=== PATIENT | female | born 1965 | race Caucasian/White ===

== ENCOUNTER → 2016-09-17 | Outpatient (CLI) | payer MEDICARE, OTHER ==
[~2016-09-17] MED LIST: NO MEDICATIONS; VIT B-12 PO
--- NOTE | ~2016-09-17 | EKG ---
PATIENT: MIYA PALAFOX UNIT #: [id number] Ventricular Rate: 69 BPM Atrial Rate: 69 BPM P-R Interval: 150 ms QRS Duration: 90 ms Q-T Interval: 388 ms QTC Calculation(Bezet): 415 ms P Hudson: 66 degrees Calculated R Hudson: 55 degrees Calculated T Hudson: 48 degrees Diagnosis Line: Normal sinus rhythm Diagnosis Line: Low voltage QRS Diagnosis Line: Borderline ECG Diagnosis Line: No previous ECGs available Diagnosis Line: Confirmed by FLORENTINO BLAIR MD ([id number]) on Diagnosis Line: 09/18/2016 11:46:53 AM INTERPRETING MD: CYDNEY
[2016-09-17 10:50] LABS: HEMATOCRIT 44.2 % (35.0-45.0); HEMOGLOBIN 14.9 gm/dL (12.0-16.0); MEAN CELL VOLUME 90.3 FL (83-96); MEAN CORPUSCULAR HEMOGLOBIN 30.3 PG (28-34); MEAN CORPUSCULAR HGB CONC 33.6 g/dL (30-36); MEAN PLATELET VOLUME 8.2 FL (6.5-11.5); RED BLOOD COUNT 4.9 X10e (3.90-5.30); RED CELL DISTRIBUTION WIDTH 13.1 % (11.0-15.5); WHITE BLOOD COUNT 6.1 X10e3 (4.0-10.5)
[2016-09-17 11:44] LABS: ALBUMIN SERUM 4.1 g/dL (3.5-5.0); ALKALINE PHOSPHATASE 317 U/L (32-92); ALT (SGPT) 134 U/L (10-40); AST (SGOT) 56 U/L (10-42); BILIRUBIN,TOTAL 0.5 mg/dL (0.2-2.0); BLOOD UREA NITROGEN 10 mg/dL (9-23); BUN/CREATININE RATIO 14.28; CALCIUM SERUM 9.5 mg/dL (8.4-10.2); CARBON DIOXIDE 30 mmol/L (22-31); CHLORIDE 103 mmol/L (100-111); CREATININE SERUM 0.7 mg/dL (0.6-1.4); GLOM FILT RATE Estimated ABOVE60 mL/min (>60); GLUCOSE FASTING 77 mg/dL (70-110); POTASSIUM 4.6 mmol/L (3.5-5.1); PROTEIN TOTAL SERUM 7.7 g/dL (6.0-8.3); SODIUM 138 mmol/L (135-145)
== END | disposition home or self-care (01) ==
LOC: CAMB 09:40
PROVIDERS: Specialist
DX: Z01.818 Encounter for other preprocedural examination (principal)
CPT/HCPCS: 36415; 80053; 85027; 93005

== ENCOUNTER 2016-09-18 10:01 | Inpatient (IN) | payer MEDICARE, OTHER ==
--- NOTE | ~2016-09-18 | NM21 ---
[facility] A Service of [place] [facility] RADIOLOGY TEXT RESULTS PATIENT: MIYA PALAFOX LOCATION: [facility] [id number] : 61 UNIT #: [id number] AGE: [address]: Nicolás Miller MD SEX: F ORDER DR: [id number] [facility] [address] [place], [place] [address] [id number] I MR#: [id number] #: [id number] NAME: MIYA PALAFOX : 1965 SEX: F STUDY DATE/TIME: 09/19/2016 11:21 UNIT: [facility] ROOM: [facility] STUDY DESCRIPTION: NM Hepatobiliary W GB Attending Physician: Nicolás Miller M.D. Ordering Physician: Nicolás Miller M.D. Primary Care Physician: No Primary Care Physician MEDICAL IMAGING REPORT This report is preliminary unless electronic signature is present EXAM Hepatobiliary scan, 09/19. INDICATION Status post cholecystectomy, 09/18/2016. Persistent upper abdominal pain and nausea after surgery. Evaluate for a bile leak. FINDINGS Imaging was obtained of the abdomen for 2 hours after the IV administration of 5.0 mCi of technetium 99m-Choletec. Comparison is made with a CT of the abdomen from 09/10/2016. There are no postoperative images available. Study shows prompt uptake by the liver with excretion into the biliary system within 30 minutes. There is presumably a drain in the right upper quadrant. This is filled with tracer within 30 minutes and partially seen at 15 minutes suggesting a bile leak. There is persistence of contrast in the james hepatis which could reflect a biloma, as well. IMPRESSION There is tracer filling what appears to be a surgical drain in the right upper quadrant. Correlate clinically as I have no postoperative imaging. This would be consistent with a bile leak. Additionally, there is persistent tracer collection in the james hepatis concerning for small biloma. Findings could be better assessed with CT if indicated. Dictated by... Nicolás Arambula Jr., M.D. THIS IS AN ELECTRONICALLY VERIFIED REPORT Nicolás Arambula Jr., M.D. at 09/20/2016 8:09 AM RLK/milagrosw [facility]. [facility] A Service of [place] [facility] RADIOLOGY TEXT RESULTS PATIENT: MIYA PALAFOX [id number] [birth year] UNIT #: [id number] AGE: [address]: Nicolás Miller MD SEX: F ORDER DR: TD: 09/19/2016 17:11 JOB #: [id number] MEDICAL IMAGING REPORT COPY
--- NOTE | ~2016-09-18 | OR ---
Unit #: [id number] #: [id number] Patient: MIYA PALAFOX [id number] [facility] [address], [place] [address] [id number] I MR#: [id number] NAME: MIYA PALAFOX [facility] Date of Procedure: 09/18/2016 Admission Date: 09/18/2016 Surgeon: Nicolás Miller M.D. : 1965 Attending Physician: Nicolás Miller M.D. OPERATIVE REPORT PREOPERATIVE DIAGNOSIS Acute cholecystitis. POSTOPERATIVE DIAGNOSIS Hydrops of the gallbladder. PROCEDURE PERFORMED Laparoscopic cholecystectomy with Kendrick-Barton drain placement. ANESTHESIA General endotracheal anesthesia. ESTIMATED BLOOD LOSS Less than 100 mL. INDICATIONS FOR PROCEDURE Ms. Palafox is a 51-year-old female, who has been having several months of right upper quadrant pain after eating. The pain became more intense and she went to the emergency room. In the emergency room, she was diagnosed with acute cholecystitis. CT scan showed gallbladder inflammation and dilatation and a normal extrahepatic biliary tree. Bilirubin was normal. Her liver chemistries were slightly elevated consistent with hepatosteatosis. DESCRIPTION OF PROCEDURE The patient was admitted to [facility], positively identified, transported to the operating room, and after induction of general endotracheal anesthesia, she received IV antibiotics per SCIP protocol and she was prepped and draped in the usual sterile fashion. A 5-mm infraumbilical incision was made. Veress needle was placed. Pneumoperitoneum was created. Then, a 5-mm trocar was placed. Laparoscope was introduced into the peritoneal cavity. Under direct vision, the epigastric and lateral ports were placed. The gallbladder was distended and inflamed. It was dilated enough that it could not be grasped, so an ovarian aspirator was used to aspirate the gallbladder contents. Upon aspiration, she had white bile consistent with hydrops of the gallbladder. Once we had aspirated the bile, the gallbladder could be grasped and elevated. There was acute inflammation of the gallbladder and a lot of fatty infiltration and inflammation around the infundibulum and the triangle of Calot. I carefully dissected out the triangle of Calot and irrigated and identified the cystic duct, gallbladder, and what I believe to be the cystic duct-common duct junction as well as the cystic Unit #: [id number] #: [id number] Patient: PALAFOX,MIYA artery. We dissected down the inflammatory tissues and there was the critical view, where the liver could be seen behind the ductal structures. The cystic duct appeared to be of normal size and the cystic artery appeared to be short, but coming off the hepatic artery. The cystic duct was doubly clipped and divided and was bluntly swept down and there were no structures behind the cystic artery, so I then swept the cystic duct up to the gallbladder to ensure there were no stones and then clipped the cystic duct, as it entered the gallbladder, 3 clips were placed distally and the cystic duct was sharply divided. I then was dissecting the gallbladder out of the liver bed, there was inflammatory tissue between the gallbladder and the hepatic fossa and as I got midway up the hepatic fossa, I saw some bile staining. I could not identify ductal structure and there was no further drainage of bile after I aspirated the bile that I saw with the suction professor of pathology. I carefully searched the area I dissected and I did not see any ductal structure. There was some bleeding from the liver bed because of the inflammatory tissues, but the gallbladder came out without any further spillage of bile and there were no stones. The clip came off the cystic duct, gallbladder junction, and two stones were dropped and they were both retrieved. I copiously irrigated. I did not see any further bile. The clips I placed were well positioned. I placed a Kendrick-Barton drain into the hepatic fossa. Again, I checked the hepatic fossa and could not identified a ductal structure. Again, there was some significant inflammation but at this point, there was no active bleeding. FloSeal was placed on the hepatic fossa that help effect any further hemostasis. The drain was secured with 2-0 silk suture. The epigastric fascial defect was closed using a neoClose device. The closure was air-tight. I then reduced the pneumoperitoneum, and infiltrated local anesthetic in each trocar site. A total of 30 mL of 0.5% Marcaine with epinephrine was placed. I then closed the skin with sterile skin jenny. Dry sterile bandages were placed. The drain was placed to bulb suction. The patient tolerated the procedure well hemodynamically. Sponges and needle counts were correct x3. The patient was transported to recovery in stable condition. I discussed the findings with the family and also expressed my concerns about the bile staining and the possibility of ductal injury, although I could not identify a ductal injury. I am going to admit the patient to the hospital and continue her perioperative antibiotics and get a HIDA scan in the morning to rule out a bile leak. Currently in the emergency room, the patient is stable and there is no bile in the Kendrick-Barton drain. Dictated by... Kendy Myles/paola TD: 09/19/2016 00:19 JOB #: [id number] Unit #: [id number] #: [id number] Patient: MIYA PALAFXO OPERATIVE REPORT X Nicolás Miller MD X PROCEDURE OPERATIVE NOTE
[2016-09-19 10:00] LABS: BASOPHIL# 0.1 X10e3 (0-0.3); BASOPHIL% 0.6 % (0-2.5); EOSINOPHIL# 0.1 X10e3 (0-0.7); EOSINOPHIL% 0.4 % (0.0-7.0); LYMPHOCYTE# 3.8 X10e3 (1.0-3.5); LYMPHOCYTE% 24.2 % (17.0-45.0); MEAN CELL VOLUME 90.2 FL (83-96); MEAN CORPUSCULAR HEMOGLOBIN 29.7 PG (28-34); MEAN CORPUSCULAR HGB CONC 32.9 g/dL (30-36); MEAN PLATELET VOLUME 8.6 FL (6.5-11.5); MONOCYTE# 1.2 X10e3 (0-1.0); MONOCYTE% 7.4 % (3.0-12.0); NEUTROPHIL# 10.6 X10e3 (1.5-7.1); NEUTROPHIL% 67.4 % (40-75); PLATELET COUNT 295 X10e3 (140-420); RED BLOOD COUNT 3.66 X10e (3.90-5.30); RED CELL DISTRIBUTION WIDTH 12.9 % (11.0-15.5)
[2016-09-19 10:02] LABS: HEMOGLOBIN 10.9 gm/dL (12.0-16.0); WHITE BLOOD COUNT 15.6 X10e3 (4.0-10.5)
[2016-09-19 10:03] LABS: DIFF IND YES
[2016-09-19 10:18] LABS: PLATELET ESTIMATE NORMAL (NORMAL); RBC NORMAL YES
[2016-09-19 10:36] LABS: ALBUMIN SERUM 3.5 g/dL (3.5-5.0); ALKALINE PHOSPHATASE 225 U/L (32-92); ALT (SGPT) 134 U/L (10-40); AST (SGOT) 90 U/L (10-42); BILIRUBIN,TOTAL 0.6 mg/dL (0.2-2.0); BLOOD UREA NITROGEN 10 mg/dL (9-23); CALCIUM SERUM 9.2 mg/dL (8.4-10.2); CARBON DIOXIDE 30 mmol/L (22-31); CHLORIDE 103 mmol/L (100-111); CREATININE SERUM 0.8 mg/dL (0.6-1.4); GLOM FILT RATE Estimated ABOVE60 mL/min (>60); GLUCOSE FASTING 119 mg/dL (70-110); MAGNESIUM 1.8 mg/dL (1.6-3.0); PHOSPHOROUS 3.7 mg/dL (2.5-4.6); POTASSIUM 4.3 mmol/L (3.5-5.1); PROTEIN TOTAL SERUM 6.3 g/dL (6.0-8.3); SODIUM 140 mmol/L (135-145)
== END 2016-09-19 20:05 | DRG 418 ==
LOC: CSUR 10:01 → CPACUOF 13:29 → C4C 20:00
PROVIDERS: Specialist
PROC: 0FT44ZZ Resection of Gallbladder, Percutaneous Endoscopic Approach (ICD-10-PCS; principal; 2016-09-18 12:00)
DX: K81.0 Acute cholecystitis (principal); K82.1 Hydrops of gallbladder; Z88.2 Allergy status to sulfonamides; F17.210 Nicotine dependence, cigarettes, uncomplicated; Z01.818 Encounter for other preprocedural examination
CPT/HCPCS: 78226; 80053; 82947; 83735; 84100; 85025; 88304; 88323; 88341; 88342; 88368; 88369; 94760; A9537; C9113; J0690; J1170; J2060; J2250; J2270; J2405; J2543; J3010